=== PATIENT | female | born 1995 | race Caucasian/White ===

== ENCOUNTER 2017-10-08 10:44 | Inpatient (IN) | payer OTHER ==
[~2017-10-08] VITALS: Ht 157.5 cm; Wt 43.1 kg
[2017-10-08 11:43] LABS: BASOPHILS 0.9 % (0-2); EOSINOPHILS 3.6 % (0-7); HEMATOCRIT 40.2 % (36.0-48.0); HEMOGLOBIN 13.4 g/dL (12-16); IMMATURE GRANULOCYTES 0.3 % (0-5); LYMPHOCYTES 27.3 % (15-50); MCH 30.5 pg (26.0-34.0); MCHC 33.3 g/dL (31.0-37.0); MCV 91.4 fL (80.0-100.0); MEAN PLATELET VOLUME 11.5 fL (7.4-10.4); NEUTROPHILS 60.9 % (40-80); PLATELET COUNT 189 10x3/uL (130-400); RDW 12.1 % (11.5-14.5)
[2017-10-08 12:17] LABS: ALBUMIN 3.9 g/dL (3.4-5.0); ALKALINE PHOSPHATASE 67 U/L (46-116); ALT (SGPT) 36 U/L (10-68); BILIRUBIN - TOTAL 1.06 mg/dL (0.2-1.3); CALC OSMOLALITY 276 mosm/kg (275-300); CARBON DIOXIDE 24.5 mmol/L (21.0-32.0); CHLORIDE - SERUM 105 mmol/L (98-107); CREATININE - SERUM 0.7 mg/dL (0.6-1.3); GLUCOSE 72 mg/dL (74-106); POTASSIUM - SERUM 4.7 mmol/L (3.5-5.1); PROTEIN - SERUM 7.5 g/dL (6.4-8.2); SODIUM 139 mmol/L (136-145); UREA NITROGEN 13 mg/dL (7-18); eGFR NON AFRICAN AMERICAN > 90 mL/min (90-120)
[2017-10-08 12:21] LABS: TROPONIN-I < 0.017 ng/mL (0.000-0.060)
[2017-10-08 13:45] LABS: HCG SERUM NEGATIVE (NEGATIVE)
[2017-10-08 19:00] VITALS: BP 104/61
[2017-10-08 23:32] VITALS: BP 104/64; BMI 17.4
[2017-10-08 23:45] VITALS: BP 101/63
[2017-10-09] VITALS (8 sets, daily range): BP systolic 91–115; BP diastolic 61–72; Ht 157.5 cm; Wt 43.1 kg
[2017-10-09 04:33] LABS: BASOPHILS 0.9 % (0-2); EOSINOPHILS 5.9 % (0-7); HEMATOCRIT 35.5 % (36.0-48.0); HEMOGLOBIN 11.9 g/dL (12-16); IMMATURE GRANULOCYTES 0.1 % (0-5); LYMPHOCYTES 35.3 % (15-50); MCH 30.3 pg (26.0-34.0); MCHC 33.5 g/dL (31.0-37.0); MCV 90.3 fL (80.0-100.0); MEAN PLATELET VOLUME 11.6 fL (7.4-10.4); MONOCYTES 8.7 % (2-11); NEUTROPHILS 49.1 % (40-80); PLATELET COUNT 195 10x3/uL (130-400); RBC 3.93 10x6/uL (4.00-5.40); RDW 11.8 % (11.5-14.5)
[2017-10-09 04:48] LABS: CALCIUM 8.3 mg/dL (8.5-10.1); CARBON DIOXIDE 24.3 mmol/L (21.0-32.0); CHLORIDE - SERUM 107 mmol/L (98-107); CREATININE - SERUM 0.8 mg/dL (0.6-1.3); GLUCOSE 82 mg/dL (74-106); SODIUM 141 mmol/L (136-145); eGFR NON AFRICAN AMERICAN > 90 mL/min (90-120)
[2017-10-09 05:02] LABS: CALC OSMOLALITY 281 mosm/kg (275-300); POTASSIUM - SERUM 3.7 mmol/L (3.5-5.1); UREA NITROGEN 18 mg/dL (7-18)
[2017-10-10] VITALS (9 sets, daily range): BP systolic 96–116; BP diastolic 64–77
== END 2017-10-10 17:47 | disposition home or self-care (01) | DRG 200 ==
LOC: D.ER 10:44 → D.ICU 14:35 → D.EDHOLD 14:35 → D.ICU 18:29
PROVIDERS: Family Medicine; Physician Assistant; Specialist
PROC: 0W9930Z Drainage of Right Pleural Cavity with Drainage Device, Percutaneous Approach (ICD-10-PCS; principal; 2017-10-08 13:40)
DX: J93.83 Other pneumothorax (principal); E44.0 Moderate protein-calorie malnutrition; Z68.1 Body mass index [BMI] 19.9 or less, adult; R06.02 Shortness of breath

== ENCOUNTER → 2018-08-02 14:37 | Outpatient (CLI) | payer MEDICAID ==
[2017-10-09 09:31] VITALS: BMI 17.3
[~2018-08-02 14:37] MED LIST: PRENAVITE1 TAB PO; TYLENOL W/CODEI1 TAB PO
== END | disposition home or self-care (01) ==
LOC: D.LDO 14:37 → D.LABREF 14:37
PROVIDERS: ATTEND Obstetrics & Gynecology
DX: O36.8130 Decreased fetal movements, third trimester, not applicable or unspecified (principal); Z3A.36 36 weeks gestation of pregnancy

== ENCOUNTER 2018-08-03 22:58 | Inpatient (IN) | payer MEDICAID ==
[~2018-08-03] VITALS: Ht 157.5 cm; Wt 52.7 kg
[2018-08-03] MEDS ORDERED: PRENAVITE1 TAB PO (23:17)
[2018-08-04 01:30] VITALS: BP 123/72; Ht 157.5 cm; Wt 52.7 kg
[2018-08-04 03:44] LABS: HEMATOCRIT 31.2 % (36.0-48.0); HEMOGLOBIN 10.5 g/dL (12-16); MCH 31.8 pg (26.0-34.0); MCHC 33.7 g/dL (31.0-37.0); MCV 94.5 fL (80.0-100.0); MEAN PLATELET VOLUME 13.8 fL (7.4-10.4); RBC 3.3 10x6/uL (4.00-5.40); RDW 12.6 % (11.5-14.5); WBC 14.5 10x3/uL (4.8-10.8)
[2018-08-04 13:10] VITALS: BP 106/52
--- NOTE | 2018-08-04 13:10 | NUR ---
PT SITTING UP IN BED. INFANT. VSS. FUNDUS FIRM AT U/1. TAYLOR CORNEJO AMT. PT ENCOURAGED TO CALL NURSE WHEN READY TO VOID.
--- NOTE | 2018-08-04 13:51 | NUR ---
PT FAMILY MEMBER STATES PT READY TO AMB TO BR. THIS NURSE TO ROOM. PT OOB AND AMB TO BR. VOIDS 200 ML OF BLOOD-TINGED URINE. PERICARE DONE PER PT. PANTIES AND PAD CHANGED. PT AMBULATES BACK TO BED. CHARLIE ACTIVITY WELL.
--- NOTE | 2018-08-04 15:00 | NUR ---
PT LYING SUPINE IN BED. EYES CLOSED. RESP NON-LABORED. PT NOT DISTURBED TO ALLOW FOR REST. SR UP X2. CALL LIGHT IN REACH.
--- NOTE | 2018-08-04 16:06 | NUR ---
PT OOB AND AMB TO BR. VOIDS 400 ML OF BLOOD-TINGED URINE. PERICARE DONE. PERIPAD AND PANTIES CHANGED WITH SMALL AMT OF RUBRA LOCHIA NOTED. PT AMB BACK TO BED. CHARLIE ACTIVITY WELL.
--- NOTE | 2018-08-04 17:24 | NUR ---
PT C/O PAIN TO ABDOMEN AND PERINEUM. STATES "EVERYWHERE" OF "10" ON 0-10 PAIN SCALE. TORADOL 10 MG GIVEN PO ORDERED.
[2018-08-04 17:26] VITALS: BP 114/72
--- NOTE | 2018-08-04 18:21 | NUR ---
DR MARTINEZ NOTIFIED OF PT C/O PAIN NOT RELIEVED BY TORADOL. ORDER RECEIVED.
--- NOTE | 2018-08-04 19:15 | NUR ---
PT C/O CRAMPING OF "6" ON 0-10 PAIN SCALE. TYLENOL #3 2 TABS GIVEN PO ORDERED. PT INSTRUCTED ON MED. VERBALIZES UNDERSTANDING.
--- NOTE | 2018-08-04 19:15 | NUR ---
THIS RN RESUMING CARE OF PT. PT REC'D SITTING IN HIGH FOWLERS POSITION CONVERSING WITH VISITORS. DENIES NEEDS AT THIS TIME BED IN LOW POSITION WITH UPPER SIDE RAILS RAISED X2. CALL LIGHT AND PHONE WITHIN REACH. WILL CONTINUE TO MONITOR AND ASSIST PRN.
--- NOTE | 2018-08-04 20:10 | NUR ---
PAIN REASSESSMENT COMPLETD. DENIES PAIN, STATES "I'M JUST SORE." BF INFANT, INSTRUCTED TO NOTIFY RN WHEN DONE FOR SHIFT ASSESSMENT TO BE COMPLETED, VERBALIZES UNDERSTANDING. BED IN LOW POSITION WITH UPPER SIDE RAILS RAISED X2. CALL LIGHT AND PHONE WITHIN REACH. WILL CONTINUE TO MONITOR AND ASSIST PRN.
[2018-08-04 20:33] VITALS: BP 115/55
--- NOTE | 2018-08-04 20:33 | NUR ---
SHIFT ASSESSMENT COMPLETED. VSS. PT STATES THAT SHE JUST VOIDED AND "THERE WAS A LOT OF BLOOD IN THE TOILET." REPORTS THAT SHE HAD 3 QUARTER SIZED CLOTS BUT SHE HAD FLUSHED THE TOILET. SMALL AMT RUBRA LOCHIA NOTED ON PERIPADS THAT PT HAD PLACED IN TRASH CAN. FUNDUS FIRM MIDLINE AND U2 WITH SCANT RUBRA LOCHIA TO CURRENT PADS, NO CLOTS NOTED. PT EDUCATED ON WHAT TO EXPECT REGARDING LOCHIA AND TO NOTIFY RN IF CONCERNED. DENIES PAIN AT THIS TIME, STATES THAT PAIN MEDICATION HELPED TREMENDOUSLY. BREATH SOUNDS CLEAR AND EQUAL BILATERALLY, RESPIRATIONS REGULAR AND UNLABORED. BOWEL SOUNDS PRESENT AND ACTIVE X4 QUADRANTS, STATES THAT SHE IS PASSING FLATUS AND VOIDING WITHOUT DIFFICULTY. MILD BILATERAL LABIAL EDEMA NOTED, REFUSES ICE PACK AT THIS TIME. STATES THAT SHE IS USING DERMAPLAST AND PERIBOTTLE WITH BETADINE AND WATER FOLLOWING EACH VOID. EDUCATED ON IMPORTANCE OF VOIDING AT LEAST Q 2 HOURS, VERBALIZES UNDERSTANDING. IN VISITORS ARMS. PT DENIES NEEDS AT THIS TIME. PLAN OF CARE DISCUSSED, DENIES QUESTIONS. BED IN LOW POSITION WITH UPPER SIDE RAILS RAISED X2. CALL LIGHT AND PHONE WITHIN REACH. WILL CONTINUE TO MONITOR AND ASSIST PRN.
--- NOTE | 2018-08-04 21:13 | NUR ---
ROUNDS MADE. DENIES PAIN AND NEEDS. SITTING IN HIGH FOLWERS POSITION BONDING WITH INFANT. TRAY REMOVED FROM ROOM PER REQUEST. ICE WATER PROVIDED. BED IN LOW POSITION WITH UPPER SIDE RAILS RAISED X2. CALL LIGHT AND PHONE WITHIN REACH. WILL CONTINUE TO MONITOR AND ASSIST PRN.
--- NOTE | 2018-08-05 00:08 | NUR ---
C/O ABD CRAMPING, 01/04, TORADOL GIVEN PER ORDER AND PT REQUEST. C/O PERINEAL "SORENESS AND PRESSURE." 2+ LABIAL SWELLING NOTED, DENIES DIFFICULTY VOIDING, REPORTS STINGING WHEN SHE VOIDS BUT STATES THAT IT IS RELIEVED WITH PERICARE PRODUCTS. ORDER REC'D FOR TUX, PROCTOFOAM PROVIDED PER ORDER. INSTRUCTED ON USE OF TUX AND PROCTOFOAM, VERBALIZES UNDERSTANDING AND STATES THAT SHE WILL CALL FOR ASSISTANCE OR QUESTIONS WITH USE. REQUEST LANOLIN, PROVIDED PER REQUEST.
--- NOTE | 2018-08-05 00:50 | NUR ---
PAIN REASSESSMENT COMPLETED. PT RESTING IN SEMI-FOWLERS POSITION WITH EYES CLOSED. RESP REGULAR AND UNLABORED, NO S/S OF DISTRESS NOTED. BED IN LOW POSITION WITH UPPER SIDE RAILS RAISED X2. CALL LIGHT AND PHONE WITHIN REACH. WILL CONTINUE TO MONITOR AND ASSIST PRN.
--- NOTE | 2018-08-05 02:18 | NUR ---
ROUNDS MADE. PT BONDING WITH . DENIES NEEDS AT THIS TIME. BED IN LOW POSITION WITH UPPER SIDE RAILS RAISED X2. CALL LIGHT AND PHONE WITHIN REACH. WILL CONTINUE TO MONITOR AND ASSIST PRN.
--- NOTE | 2018-08-05 03:24 | NUR ---
UP TO VOID. ICE PACK PROVIDED FOR PERINUM PER REQUEST. DEMONSTRATED PROCTOFOAM AND TUX PAD USE PER REQUEST. SCANT RUBRA LOCHIA NOTED TO PERIPADS. DENIES ADDITIONAL NEEDS AT THIS TIME. Robi GUZMÁN RN AT BEDSIDE TO ASSIST WITH BF. BED IN LOW POSITION WITH UPPER SIDE RAILS RAISED X2. CALL LIGHT AND PHONE WITHIN REACH. WILL CONTINUE TO MONITOR AND ASSIST PRN.
--- NOTE | 2018-08-05 04:52 | NUR ---
RESTING QUEITLY WITH EYES CLOSED LAYING ON RIGHT SIDE. RESPIRATIONS REGULAR AND UNLABORED, NO S/S OF DISTRESS NOTED. INFANT IN NBN. BED IN LOW POSITION WITH UPPER SIDE RAILS RAISED X2. CALL LIGHT AND PHONE WITHIN REACH. WILL CONTINUE TO MONITOR AND ASSIST PRN.
--- NOTE | 2018-08-05 06:11 | NUR ---
RESTING WITH EYES CLOSED IN SEMI FOLWERS POSITION. RESPIRATIONS REGULAR AND UNLABORED, NO S/S OF DISTRESS NOTED. BED IN LOW POSITION WITH UPPER SIDE RAILS RAISED X2. CALL LIGHT AND PHONE WITHIN REACH. WILL CONTINUE TO MONITOR AND ASSIST PRN.
[2018-08-05 08:05] LABS: BASOPHILS 0.2 % (0-2); EOSINOPHILS 0.5 % (0-7); HEMOGLOBIN 10.6 g/dL (12-16); IMMATURE GRANULOCYTES 1.5 % (0-5); LYMPHOCYTES 16.6 % (15-50); MCH 31.8 pg (26.0-34.0); MCHC 33.1 g/dL (31.0-37.0); MCV 96.1 fL (80.0-100.0); MEAN PLATELET VOLUME 13.3 fL (7.4-10.4); MONOCYTES 6.6 % (2-11); NEUTROPHILS 74.6 % (40-80); PLATELET COUNT 165 10x3/uL (130-400); RBC 3.33 10x6/uL (4.00-5.40); RDW 12.8 % (11.5-14.5); WBC 14.6 10x3/uL (4.8-10.8)
[2018-08-05 08:43] VITALS: BP 118/62
--- NOTE | 2018-08-05 08:50 | NUR ---
ASSESSMENT DONE- PT SITTING ON SIDE OF BED HOLDING . DENIES NEEDS. STATES IS VOIDING WITHOUT PROBLEMS.
--- NOTE | 2018-08-05 10:03 | NUR ---
RESTING IN BED - HOLDING - DENIES NEEDS.
--- NOTE | 2018-08-05 13:22 | NUR ---
ROUNDS MADE. PT SITTING UP IN BED. PAIN AND NEEDS ASSESSED. PT REPORTS ABD CRAMPING 03/06. REQUEST PAIN MEDICATION. TORADOL 10MG PO GIVEN. PT REPORTING SHE WANTS TO SHOWER. LAB RESULTS REVIEWED. IV SITE DISCONTINUED INTACT. SITE WNL. BANDAID PLACED OVER SITE. BATHING ITEMS PROVIDED.
--- NOTE | 2018-08-05 14:21 | OP ---
PATIENT NAME: DAVID RUIZ MEDICAL RECORD: [id number] :93 LOCATION:[id number] ADMISSION DATE:08/03/18 SURGEON: JIGAR BAUTISTA MD DATE OF OPERATION: 08/04/2018 PREDELIVERY DIAGNOSIS: Spontaneous rupture at 37 weeks' gestation. POSTDELIVERY DIAGNOSIS: Mother delivered at 37 weeks' gestation. PROCEDURE: Vaginal delivery. ATTENDING: Jigar Bautista MD ANESTHETIC: None. FINDINGS: Viable female infant, SID presentation, Apgars were 8 and 9. Double nuchal cord cut on the perineum. First-degree lacerations of the vaginal sidewalls both right and left with a posterior left first-degree laceration at the fourchette. Repairs are effected with 4-0 and 2-0 chromic. Placenta spontaneous and intact. ESTIMATED BLOOD LOSS: 375 cc. DISPOSITION: Mother and infant recovered in the room. TRANSINT:[id number] Voice Confirmation ID: [id number] DOCUMENT ID: [id number] JIGAR BAUTISTA MD at 1421 CC: [id number] DICTATION DATE: 08/04/1818 DENTAL PRACTICE MANAGER: 08/04/18 1000 ADM IN [facility] [address] [place] [address]
[2018-08-05 14:26] VITALS: BP 118/70
--- NOTE | 2018-08-05 14:27 | NUR ---
sitting upbed. states she has been walking around room. denies wanting to shower at this time. denies needs.
--- NOTE | 2018-08-05 16:00 | NUR ---
talking with visitors- does not want to shower at this time.
--- NOTE | 2018-08-05 19:00 | NUR ---
REPORT TO PM SHIFT.
[2018-08-05 20:33] VITALS: BP 118/63
--- NOTE | 2018-08-05 20:33 | NUR ---
PT. AWAKE AND LYING ON BACK WITH HOB AT 15 DEGREES. VISITOR IN ROOM HOLDING BABY. BREATH SOUNDS CLEAR AND BOWEL SOUNDS AUDIBLE. NO EDEMA NOTED IN LOWER EXTREMITIES. NO REDNESS NOR PAIN IN LOWER EXTREMITIES. FUNDUS FIRM U/2 AND MIDLINE. LOCHIA RUBRA SCANT. PT. REPORTS THAT SHE HAS ABD. CRAMPING FROM AND PERINEAL DISCOMFORT. RATES A 6 OF 10 ON PAIN SCALE. PHYSICIAN ORDERS PULLED UP IN ROOM AND PT. INFORMED OF PAIN MEDICATION AVAILABLE TO HER. STATES SHE TOOK TORADOL PREVIOUSLY WHICH WAS EFFECTIVE. REPORTS FLATUS BUT NO BOWEL MOVEMENT OF YET. PT. CHEERFUL.
--- NOTE | 2018-08-05 20:40 | NUR ---
TORADOL GIVEN REQUESTED PER PT. SIDE RAILS UP X 2 AND PHONE WITHIN PT. REACH.
--- NOTE | 2018-08-05 21:25 | NUR ---
PT. AT PRESENT. STATES PAIN IS MUCH IMPROVED . RATES A 4 OF 10 .
--- NOTE | 2018-08-05 22:42 | NUR ---
PT. REPORTS THAT SHE IS COMFORTABLE. DENIES PAIN. VISITOR SITTING UP ON SOFA HOLDING INFANT WHICH IS ASLEEP. PT. REQUESTED LEMON KWIGILLING[employer] SODA TO DRINK. SAME PROVIDED. PT. CHEERFUL.
--- NOTE | 2018-08-06 00:15 | NUR ---
UP TO BATHROOM. VISITOR REMAINS IN ROOM. IN OPEN CRIB.
--- NOTE | 2018-08-06 01:40 | NUR ---
PT. LYING ON BACK WITH ON HER CHEST WITH BOTH SLEEPING. PT. AWAKENED AND ASKED IF THIS NURSE COULD BUT INTO OPEN CRIB. DISCUSSED WITH PT. BED SHARING BECOMES A SAFETY ISSUE AND PT. STATES UNDERSTANDING. SWADDLED AND PLACED IN OPEN CRIB. FRIEND LYING ON SOFA.
--- NOTE | 2018-08-06 02:37 | NUR ---
PT. REQUESTING MEDICATION FOR ABD. CRAMPING. SENIOR HR BUSINESS PARTNER CALLED FOR TORADOL DUE TO PRESENT PYXIS NOT HAVING ANY TORADOL.
--- NOTE | 2018-08-06 02:40 | NUR ---
INTO PT. ROOM TO INFORM HER THAT [employer] WAS BRING HER TORADOL. PT. JAKIP AT PRESENT.
--- NOTE | 2018-08-06 03:25 | NUR ---
FARM LABOR CONTRACTOR BROUGHT TORADOL TO UNIT FOR PT. USE.
--- NOTE | 2018-08-06 03:31 | NUR ---
TORADOL GIVEN FOR C/O ABD. CRAMPING AND BACKPAIN. AWAKENED FOR ADMINISTRATION. ENCOURAGED PT. TO POSITION ON SIDE HAS BEEN ON BACK EACH TIME THIS NURSE IN ROOM. PT. POSITIONED TO RT SIDE AND SUPPORTED WITH PILLOWS.
--- NOTE | 2018-08-06 04:25 | NUR ---
LYING ON RT SIDE WITH EYES CLOSED. RESPIRATIONS UNLABORED. DID NOT AWAKEN TO THIS NURSE IN ROOM.
--- NOTE | 2018-08-06 05:35 | NUR ---
PT. AWAKENED FOR OF . ID OF MOTHER AND BABY MATCHED. PT. DENIES ANY NEEDS AT THIS TIME.
[2018-08-06 07:37] LABS: RAPID PLASMA REAGIN Non Reactive (Non Reactive)
--- NOTE | 2018-08-06 07:40 | NUR ---
DR MARTINEZ VISITS WITH PT.
[2018-08-06 07:51] VITALS: BP 115/79
--- NOTE | 2018-08-06 07:51 | NUR ---
RECEIVED PT SITTING UP IN BED. . VSS. HRRR WITHOUT AUDIBLE MURMUR. BBS CLEAR. BS X 4. ABDOMEN SOFT/NON-DISTENDED. FUNDUS FIRM AT U/2. RUBRA LOCHIA SMALL AMT. PERINEUM WITH SLIGHT EDEMA NOTED. SKIN PINK TO PERINEUM. NEG HOMANS' SIGN. PPP. NO EDEMA NOTED TO BLE. PT C/O PAIN "ALL OVER" OF 7-8" ON 0-10 PAIN SCALE. SR UP X2. CALL LIGHT IN REACH.
--- NOTE | 2018-08-06 07:59 | NUR ---
TYLENOL #3 2 TABS GIVEN PO ORDERED FOR PT C/O PAIN. INSTRUCTED ON MED. VERBALIZES UNDERSTANDING.
--- NOTE | 2018-08-06 08:58 | NUR ---
Stephane Gabriel 08[birth year] S: Patient states this is her first baby and is going ok. She has been having a hard time latching baby and to get her to stay away for a feeding. Thinks it because baby is wrapped up and is warm, she just wants to sleep. Asked what are normal feeding patterns for a breastfed baby and how to wake her for feeding. She fed infant not to long ago and will try again in a little while. States her nipples are sore when latches. O: Patient in bed holding . Asked how can I help with and congratulated on delivery. Asked if any pain or discomfort with ? Informed patient takes time, practice, and patience in the beginning. Explained breastmilk composition, benefits of skin to skin, positions, normal feeding patterns for an exclusively breastfed infant, how to determine if baby is latched correctly, feeding cues, tips on waking a sleeping baby, and how benefits of practicing responsive feeding. Explained how to verify is getting enough milk by diaper count outputs. Please ask for help as needed. Asked if any other questions or concerns. For next feeding please contact nursery staff nurse and ask for help with latching . Latching correctly will help prevent sore nipples. Provided CLC work cell and office number if she needs help after being discharged. Encouraged patient to take things on feeding at a time, she is doing a great job. A: Patient learning to breastfeed with baby. P: Continue to support during hospital visit. Lara Chaudhry, CLC
--- NOTE | 2018-08-06 09:30 | NUR ---
PT SITTING UP IN BED. VISITS WITH FAMILY. DENIES PAIN OR NEEDS. DECLINES FLU VACCINE AND STATES RECEIVED TDAP AT [facility] DURING .
--- NOTE | 2018-08-06 10:30 | NUR ---
PT SITTING UP IN BED. VISITS WITH FAMILY MEMBER. DENIES C/O OR NEEDS.
[2018-08-06] MEDS ORDERED: TYLENOL W/CODEI1 TAB PO (11:23)
--- NOTE | 2018-08-06 11:50 | NUR ---
DISCHARGE INSTRUCTIONS GIVEN TO PT. PT VERBALIZES UNDERSTANDING OF ALL INSTRUCTIONS. COPIES GIVEN TO PT. RX FOR TYLENOL #3 GIVEN TO PT. PT C/O RASH TO ABDOMEN. RASH NOTED TO ABDOMEN BELOW [facility]. NO RASH NOTED ANYWHERE ELSE. WILL NOTIFY DR MARTINEZ.
--- NOTE | 2018-08-06 12:25 | NUR ---
DR MARTINEZ NOTIFIED OF RASH. STATES PT MAY APPLY HYDROCORTISONE CREAM OTC AND IF WORSENS, PT TO CALL [facility] IN CLINIC. PT INFORMED.
--- NOTE | 2018-08-06 13:25 | NUR ---
PT SITTING UP IN BED. VISITS WITH FAMILY. DENIES NEEDS OR C/O. NURSERY FINISHED WITH DISCHARGE INSTRUCTIONS. PT INFORMED TO NOTIFY NURSE WHEN READY FOR DISCHARGE FOR WHEELCHAIR TO BE CALLED FOR.PT VERBALIZES UNDERSTANDING.
--- NOTE | 2018-08-06 15:08 | NUR ---
PT READY FOR DISCHARGE. DISCHARGED IN STABLE CONDITION WITH VIA WHEELCHAIR PER AUXILIARY STAFF TO PRIVATE VEHICLE.
== END 2018-08-06 15:08 | disposition home or self-care (01) | DRG 807 ==
LOC: D.LDO 22:58 → D.LD 23:00 → D.LDO 23:08 → D.LD 23:08
PROVIDERS: ADMIT Obstetrics & Gynecology; ATTEND Obstetrics & Gynecology
PROC: 10E0XZZ Delivery of Products of Conception, External Approach (ICD-10-PCS; principal; 2018-08-04)
PROC: 0KQM0ZZ Repair Perineum Muscle, Open Approach (ICD-10-PCS; 2018-08-04)
DX: O99.824 Streptococcus B carrier state complicating childbirth (principal); Z37.0 Single live birth; Z3A.37 37 weeks gestation of pregnancy; O70.1 Second degree perineal laceration during delivery